=== PATIENT | female | born 1995 | race African-American/Black ===

== ENCOUNTER → 2022-10-19 10:46 | Outpatient (CLI) | payer OTHER, SELFPAY ==
--- NOTE | ~2022-10-19 | XR_ITS ---
EXAMINATION: XR hand LT min 3V INDICATION: Left hand pain TECHNIQUE: Three views of the left hand are obtained. COMPARISON: None available FINDINGS: No fracture, dislocation, or subluxation. The bones, soft tissues, and joint spaces are nor mal. IMPRESSION: 1. No acute osseous abnormality. Reviewed, dictated and finalized at location A.
== END ==
PROVIDERS: PCP Emergency Medicine; Visit Provider Emergency Medicine
DX: M79.645 Pain in left finger(s) (principal)
CPT/HCPCS: 73130

== ENCOUNTER → 2022-12-07 11:09 | Outpatient (CLI) | payer OTHER, SELFPAY ==
--- NOTE | ~2022-12-07 | XR_ITS ---
Clinical Indication: Asthma PA and lateral views of the chest: Comparison: None Findings: The lungs are clear, without evidence of focal consolidation or pleural effusion. Cardiome diastinal silhouette is within normal limits. Bones and soft tissues are unremarkable. Impression: Normal chest. Reviewed, dictated and finalized at location . Impression: Normal chest.
== END ==
PROVIDERS: PCP Emergency Medicine; Visit Provider Emergency Medicine
DX: J45.909 Unspecified asthma, uncomplicated (principal)
CPT/HCPCS: 71046

== ENCOUNTER 2023-01-03 13:42 | Outpatient (CLI) | payer OTHER, SELFPAY ==
--- NOTE | ~2023-01-03 | US_ITS ---
EXAMINATION: US renal BI DATE: 01/03/2023 14:43 INDICATION: HIGH CREATININE TECHNIQUE: Multiple grayscale and Doppler ultrasound images of the kidneys were obtained. COMPARISON: None. FINDINGS: The right kidney measures 10.0 x 4.3 x 5.1 cm. The left kidney measures 11.4 x 6.0 x 4.1 cm. The kidn eys demonstrate normal parenchymal echogenicity. There is no hydronephrosis. The bladder is normal. IMPRESSION: Unremarkable renal sonogram findings. Reviewed, dictated and finalized at location K.
== END 2023-01-03 13:43 | disposition home or self-care (01) ==
PROVIDERS: PCP Emergency Medicine; Visit Provider Emergency Medicine
DX: R79.89 Other specified abnormal findings of blood chemistry (principal)
CPT/HCPCS: 76775

== ENCOUNTER → 2023-10-10 11:54 | Outpatient (CLI) | payer OTHER, SELFPAY ==
--- NOTE | ~2023-10-10 | XR_ITS ---
Clinical Indication: Asthma PA and lateral views of the chest: Comparison: 12/07/2022 Findings: The lungs are clear, without evidence of focal consolidation or pleural effusion. Cardiome diastinal silhouette is within normal limits. Bones and soft tissues are unremarkable. Impression: Normal chest. Reviewed, dictated and finalized at location . Impression: Normal chest.
--- NOTE | ~2023-10-10 | XR_ITS ---
Lumbosacral Spine: AP and lateral views Clinical History: Pain Findings: The normal lordotic curve is maintained. The vertebral bodies and posterior elements are i ntact. The intervertebral disc spaces are preserved. The sacroiliac joints are normally outlined. Impression: No significant abnormality. Reviewed, dictated and finalized at [facility]. Impression: No significant abnormality.
== END ==
PROVIDERS: PCP Emergency Medicine; Visit Provider Emergency Medicine
DX: R20.0 Anesthesia of skin (principal); J45.909 Unspecified asthma, uncomplicated
CPT/HCPCS: 71046; 72100

== ENCOUNTER 2024-11-20 09:05 | Outpatient (CLI) | payer OTHER, SELFPAY ==
--- NOTE | ~2024-11-20 | US_ITS ---
US soft tissue head and neck 11/20/2024 10:24 Indication: Anterior neck mass Procedure: Neck ultrasound Comparison: Palpable anterior neck mass. Findings: Located anteriorly paracentral to the left adjacent to the isthmus of the thyroid gland the re is a cyst measuring 1.5 x 1 x 0.5 cm without internal vascularity. This mass is well-circumscribed and anechoic with thin ellis and no internal septations. Impression: 1: Anechoic well-defined cystic mass. 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 Differential diagnosis includes epidermoid/dermoid cyst, foraminal lobe cyst. Consider follow-up ultrasound as clinically warranted. Clinical correlation is a dvised including assessment for mobility with tenting protrusion or swallowing. Reviewed, dictated and finalized at location A. Impression: 1: Anechoic well-defined cystic mass. Midline anterior neck adjacent to the ist hmus of the thyroid, most consistent with thyroglossal duct cyst. Differential diagnosis includes epidermoid/dermoid cyst, foraminal lobe cyst. Consider follo w-up ultrasound as clinically warranted. Clinical correlation is advised includ ing assessment for mobility with tenting protrusion or swallowing.
--- OUTSIDE RECORDS SUMMARY | 2024-11-20 09:09 | XMS_ITS | Data Portability ---
Author Organization [facility] [employer] , [facility] Address [address] [place] [address] Assessment Encounter Date Assessment Date Assessment LastModified by Organization Details LastModified Time 03/24/2024 03/24/2024 Estradiol breakthrough bleeding refused surswab Not available 03/24/2024 16:13:17 Plan of Treatment Reminders Order Date Submit Date Provider Last Modified By Organization Details Last Modified Time Details Appointments None recorded. Lab bacterial vaginosis + vaginitis panel, vaginal 2024 025 [facility], [address] [place], [address], 5 14:11:02 bacterial vaginosis + vaginitis panel, vaginal 2024 025 [facility], [address] [place], [address], 5 09:47:22 urinalysis, dipstick 2024 025 [email or web address] [facility], [address] [facility], [place], [address], 5 15:34:48 culture, urine 2024 025 [facility], [address] [facility], [place], [address], 5 16:55:24 bacterial vaginosis + vaginitis panel, vaginal 2024 025 [facility] Rusty, [address] [place], [address], 14:57:47 Referral None recorded. Procedures None recorded. Surgeries None recorded. Imaging None recorded. Medication Orders metronidazo le 500 mg tablet 2024 025 [facility] [id number] [employer], [address] [facility] [place], [address], 5 09:55:00 estradiol 1 mg tablet 2023 025 [facility] [id number] [employer], [address] [facility] [place], [address], 5 15:05:44 Patient TargetsNo targets recorded. Patient Instructions Encounter Date Encounter Id Patient Instructions Last Modified By Organization Details Last Modified Time 05/16/2024 [id number] vaginitis: care instructions [email or web address] Not available 05/16/2024 15:34:48 11/14/2024 [id number] vaginitis: care instructions Not available 11/14/2024 15:06:18 Reason for Referral None Reported. Results Created Date Observation Date Name Description Value Unit Range Abnormal Flag Note LastModifiedBy Organization Detail LastModifiedTime 05/16/1905/18/2024 CULTU RE, URINE , ROUTI NE culture, urine, routine SEE NOTE abnormal CULTU RE, URINE , ROUTI NE Micro Numbe r: [id number] Test Statu s: Final Speci men Sourc e: Urine Speci men Quali ty: Adequ ate Resul t: Great er than 100,0 00 CFU/m L of Klebs iella aerog elvia (Ente robac ter) Michael aerog elvia ----- ----- ----- - INT MARILOU AMOX/ CLAVU LANAT E R 16 CEFAZ KRISSY R <=4 1 CEFEP ANUJA S <=0.1 2 CEFTA ZIDIM E S <=1 CEFTR IAXON E S <=0.2 5 CIPRO FLOXA KVNG S <=0.0 6 GENTA MICIN S <=1 LEVOF LOXAC IN S <=0.1 2 MEROP ENEM S <=0.2 5 NITRO FURAN TOIN I 64 PIP/T AZOBA CTAM S <=4 TRIME THOPR IM/PEREZ LFA S <=20 S = Susce ptibl e I = Inter media te R = Resis tant NS = Not susce ptibl e SDD = Susce ptibl e Dose Depen dent * = Not Teste d NR = Not Repor nathalia NN = See Thera py Comme nts THERA PY COMME NTS Note 1: For uncom plica nathalia UTI cause d by E. coli, K. pneum oniae or P. mirab ilis: Cefaz krissy is susce ptibl e if MARILOU <3 2 mcg/m L and predi cts susce ptibl e to the oral agent s cefac christo, cefdi altagracia, cefpo doxim e, cefpr ozil, cefur oxime , cepha lexin and lorac arbef . Not Available [facility] [address] [place], [address], 05/18/2024 10:03:08 05/16/19 25 05/19/2024 VAGIN ITIS PLUS STD PANEL bacterial vaginosis BV neg negati ve normal Not Available [address], [address], 05/19/2024 14:57:47 05/16/19 25 05/19/2024 VAGIN ITIS PLUS STD PANEL andres species C. spp neg negati ve normal Not Available [address], [address], 05/19/2024 14:57:47 05/16/19 25 05/19/2024 VAGIN ITIS PLUS STD PANEL andres glabrata C. gla neg negati ve normal Not Available [address], [address], 05/19/2024 14:57:47 05/16/19 25 05/19/2024 VAGIN ITIS PLUS STD PANEL trichomonas vaginalis CV/TV TRICH neg negati ve normal Not Available [facility] [address] [place], [address], 05/19/2024 14:57:47 05/16/19 25 05/19/2024 VAGIN ITIS PLUS STD PANEL chlamydia trachomatis CT neg negati ve normal This repor t is inten ded for us in clini felice monit oring and manag ement of [facility] nts. It is not inten ded for use in medic al-le gal appli catio n. Not Available [facility] [address] [place], [address], 05/19/2024 14:57:47 05/16/19 25 05/19/2024 VAGIN ITIS PLUS STD PANEL neisseria gonorrhoeae GC neg negati ve normal This repor t is inten ded for us in clini felice monit oring and manag ement of patie nts. It is not inten ded for use in medic al- gal appli catio n. Not Available [facility] [address] [place] [address], [address], 05/19/2024 14:57:47 05/16/19 25 05/16/2024 urina lysis , dipst ick Leukocytes Trace Not Available [address], [address], 05/16/2024 15:11:30 05/16/19 25 05/16/2024 urina lysis , dipst ick Nitrite negati ve Not Available [address], [address], 05/16/2024 15:11:30 05/16/19 25 05/16/2024 urina lysis , dipst ick Urobilinogen .2 Not Available [address], [address], 05/16/2024 15:11:30 05/16/19 25 05/16/2024 urina lysis , dipst ick Protein Trace Not Available [facility] [address], [place], [address], 05/16/2024 15:11:30 05/16/19 25 05/16/2024 urina lysis , dipst ick pH 5.0 Not Available [facility] [address], [place], [address], 05/16/2024 15:11:30 05/16/19 25 05/16/2024 urina lysis , dipst ick Blood Non-He molyze d: Trace Not Available [facility] [address], [place], [address], 05/16/2024 15:11:30 05/16/19 25 05/16/2024 urina lysis , dipst ick Specific [place] 1.030 Not Available [facility] [address], [place], [address], 05/16/2024 15:11:30 05/16/19 25 05/16/2024 urina lysis , dipst ick Ketone Trace Not Available [facility] [address], [place], [address], 05/16/2024 15:11:30 05/16/19 25 05/16/2024 urina lysis , dipst ick Bilirubin Small Not Available [facility] [address], [place], [address], 05/16/2024 15:11:30 05/16/19 25 05/16/2024 urina lysis , dipst ick Glucose Negati ve Not Available [facility] [address], [place], [address], 05/16/2024 15:11:30 05/16/19 25 05/16/2024 urina lysis , dipst ick Appearance Slight ly Cloudy Not Available [facility] [address] [place] [address], [address], 05/16/2024 15:11:30 05/16/19 25 05/16/2024 urina lysis , dipst ick Color Yellow Not Available [facility] [address] [place] [address], [address], 05/16/2024 15:11:30 08/16/19 25 08/19/2024 VAGIN ITIS PLUS STD PANEL bacterial vaginosis BV neg negati ve normal Not Available [address], [address], 08/20/2024 09:47:22 08/16/19 25 08/19/2024 VAGIN ITIS PLUS STD PANEL andres species C. spp POS negati ve abnormal Not Available [address], [address], 08/20/2024 09:47:22 08/16/19 25 08/19/2024 VAGIN ITIS PLUS STD PANEL andres glabrata C. gla neg negati ve normal Not Available [address], [address], 08/20/2024 09:47:22 08/16/19 25 08/19/2024 VAGIN ITIS PLUS STD PANEL trichomonas vaginalis CV/TV TRICH neg negati ve normal Not Available [address], [address], 08/20/2024 09:47:22 08/16/19 25 08/19/2024 VAGIN ITIS PLUS STD PANEL chlamydia trachomatis CT neg negati ve normal This repor t is inten ded for us in clini felice monit oring and manag ement of [facility] nts. It is not inten ded for use in medic al-le gal appli catio n. Not Available [address] [place], [address], 08/20/2024 09:47:22 08/16/19 25 08/19/2024 VAGIN ITIS PLUS STD PANEL neisseria gonorrhoeae GC neg negati ve normal This repor t is inten ded for us in clini felice monit oring and manag ement of [facility]. It is not inten ded for use in medic al-le gal appli catio n. Not Available [address], [address], 08/20/2024 09:47:22 11/15/19 25 11/17/2024 VAGIN ITIS PLUS STD PANEL bacterial vaginosis BV neg negati ve normal Not Available [address], [address], 11/17/2024 14:11:02 11/15/19 25 11/17/2024 VAGIN ITIS PLUS STD PANEL andres species C. spp neg negati ve normal Not Available [address], [address], 11/17/2024 14:11:02 11/15/19 25 11/17/2024 VAGIN ITIS PLUS STD PANEL andres glabrata C. gla neg negati ve normal Not Available [address], [address], 11/17/2024 14:11:02 11/15/19 25 11/17/2024 VAGIN ITIS PLUS STD PANEL trichomonas vaginalis CV/TV TRICH neg negati ve normal Not Available [address], [address], 11/17/2024 14:11:02 11/15/19 25 11/17/2024 VAGIN ITIS PLUS STD PANEL chlamydia trachomatis CT neg negati ve normal This repor t is inten ded for us in clini felice monit oring and manag ement of [facility]. It is not inten ded for use in medic al-le gal appli catio n. Not Available [facility] [address] [place], [address], 11/17/2024 14:11:02 11/15/1911/17/2024 VAGIN ITIS PLUS STD PANEL neisseria gonorrhoeae GC neg negati ve normal This repor t is inten ded for us in clini felice monit oring and manag ement of patie nts. It is not inten ded for use in medic al-le gal appli catio n. Not Available [facility] [address] [facility], [place], [address], 11/17/2024 14:11:02 Result Notes None recorded. Problems Name Problem SNOMED Code Status Onset Date Resolution Date Notes Provider Name and Address Organization Details Recorded Time Pregnanc y, childbir th and puerperi um finding Completed 201802/04/2019 Encounte r for supervis ion of normal first pregnanc y, first trimeste r; Progress : Stable Added By: Sophia Rothman Add to Current Problems : NO ProblemS tatus: Resolve Not Available [facility] 2 20:09:00 Gestatio n period, 12 weeks [id number] Completed 201802/04/2019 12 weeks gestatio n of pregnanc y; Progress : Stable Added By: Sophia Rothman Add to Current Problems : NO ProblemS tatus: Resolve Not Available [facility] 2 20:09:04 Screenin g for malignan t neoplasm of cervix Completed 201802/04/2019 Encounte r for screenin g for malignan t neoplasm of cervix; Progress : Stable Added By: Sophia Rothman Add to Current Problems : NO ProblemS tatus: Resolve Not Available [facility] 2 20:09:04 Pregnanc y, childbir th and puerperi um finding Completed 201809/23/2020 Encounte r for supervis ion of normal first pregnanc y, second trimeste r; Progress : Stable Added By: Shanon Castañeda Add to Current Problems : NO ProblemS tatus: Resolve Not Available [facility] 2 20:09:01 Gestatio n period, 15 weeks [id number] Completed 201802/04/2019 15 weeks gestatio n of pregnanc y; Progress : Stable Added By: Twyla Rothman Add to Current Problems : NO ProblemS tatus: Resolve Not Available [facility] 2 22:10:43 Gestatio n period, 23 weeks [id number] Completed 201802/04/2019 23 weeks gestatio n of pregnanc y; Progress : Stable Added By: Twyla Rothman Add to Current Problems : NO ProblemS tatus: Resolve Not Available [facility] 2 20:09:[address] Concept Completed 201802/04/2019 Supervis ion of high risk pregnanc y, unspecif ied, second trimeste r; Progress : Stable Added By: Susy Mcgarry Add to Current Problems : NO ProblemS tatus: Resolve Not Available [facility] 2 20:09:01 Antenata l screenin g for growth retardat ion Completed 201809/23/2020 Encounte r for antenata l screenin g for growth retardat ion; Progress : Stable Added By: Susy Mcgarry Add to Current Problems : NO ProblemS tatus: Resolve Not Available [facility] 2 20:09:02 Antenata l screenin g for malforma tion Completed 201802/04/2019 Encounte r for antenata l screenin g for malforma tions; Progress : Stable Added By: Twyla Rothman Add to Current Problems : NO ProblemS tatus: Resolve Not Available [facility] 2 20:09:06 Gestatio n period, 27 weeks [id number] Completed 201809/23/2020 27 weeks gestatio n of pregnanc y; Progress : Stable Added By: Shanon Castañeda Add to Current Problems : NO ProblemS tatus: Resolve Not Available [facility] 2 22:10:42 Pregnanc y, childbir th and puerperi um finding Completed 201809/23/2020 Encounte r for supervis ion of normal first pregnanc y, third trimeste r; Progress : Stable Added By: [place] Dial Add to Current Problems : NO ProblemS tatus: Resolve Not Available [facility] 2 20:08:59 Gestatio n period, 29 weeks [id number] Completed 201809/23/2020 29 weeks gestatio n of pregnanc y; Progress : Stable Added By: Dolly Taylor Add to Current Problems : NO ProblemS tatus: Resolve Not Available [facility] 2 20:09:05 Gestatio n period, 30 weeks [id number] Completed 201809/23/2020 30 weeks gestatio n of pregnanc y; Progress : Stable Added By: Eyad Baxter Add to Current Problems : NO ProblemS tatus: Resolve Not Available [facility] 2 20:09:00 Gestatio n period, 32 weeks [id number] Completed 201809/23/2020 32 weeks gestatio n of pregnanc y; Progress : Stable Added By: Zenaida Mckeon Add to Current Problems : NO ProblemS tatus: Resolve Not Available [facility] 2 20:09:03 Uterine size for dates discrepa ncy Completed 201809/23/2020 Uterine size-kassie e discrepa ncy, third trimeste r; Progress : Stable Added By: Zenaida Mckeon Add to Current Problems : NO ProblemS tatus: Resolve Not Available [facility] 2 20:09:03 Gestatio n period, 34 weeks [id number] Completed 201809/23/2020 34 weeks gestatio n of pregnanc y; Progress : Stable Added By: Sophia Rothman Add to Current Problems : NO ProblemS tatus: Resolve Not Available [facility] 2 20:09:03 Normal pregnanc y in multigra sanjana [id number] Completed 201809/23/2020 Encounte r for supervis ion of other normal pregnanc y, third trimeste r; Progress : Stable Added By: Sophia Rothman Add to Current Problems : NO ProblemS tatus: Resolve Not Available [facility] 2 20:09:02 Gestatio n period, 36 weeks [id number] Completed 201809/23/2020 36 weeks gestatio n of pregnanc y; Progress : Stable Added By: Martha Burnette Add to Current Problems : NO ProblemS tatus: Resolve Not Available [facility] 2 22:10:42 Antenata l screenin g Completed 201809/23/2020 Encounte r for antenata l screenin g for Streptoc occus B; Progress : Stable Added By: Martha Burnette Add to Current Problems : NO ProblemS tatus: Resolve Encounte r for other specifie d antenata l screenin g; Progress : Stable Added By: [place] Dial Add to Current Problems : NO ProblemS tatus: Resolve; Start Date : 10/18/19 19 Not Available [facility] 2 20:09:00 Gestatio n period, 37 weeks [id number] Completed 201809/23/2020 37 weeks gestatio n of pregnanc y; Progress : Stable Added By: [place] Dial Add to Current Problems : NO ProblemS tatus: Resolve Not Available [facility] 2 20:09:06 Procedur e on genitour inary system Completed 201909/23/2020 Encounte r for surgical aftercar e followin g surgery on the genitour inary system; Progress : Stable Added By: Danae Rose Add to Current Problems : NO ProblemS tatus: Resolve Not Available [facility] 2 20:09:01 Postoper ative care Completed 201909/23/2020 Encounte r for surgical aftercar e followin g surgery on the genitour inary system; Progress : Stable Added By: Danae Rose Add to Current Problems : NO ProblemS tatus: Resolve Not Available [facility] 2 20:09:02 Clinical finding Completed 201909/23/2020 Encounte r for initial prescrip tion of injectab le contrace ptive; Progress : Stable Added By: Debi Chamberlain Add to Current Problems : NO ProblemS tatus: Resolve Not Available [facility] 2 20:09:05 Depressi on screenin g Completed 201909/23/2020 Encounte r for screenin g for maternal depressi on; Progress : Stable Added By: Danae Rose Add to Current Problems : NO ProblemS tatus: Resolve Not Available [facility] 2 20:09:05 Lochia finding Completed 201909/23/2020 Encounte r for routine postpart um follow-u p; Progress : Stable Added By: Twyla Rothman Add to Current Problems : NO ProblemS tatus: Resolve Not Available [facility] 2 20:09:04 Sampling of vagina for Papanico laou smear Completed 201909/23/2020 Encounte r for gynecolo gical examinat ion (general ) (routine ) without abnormal findings ; Progress : Stable Added By: yEad Baxter Add to Current Problems : NO ProblemS tatus: Resolve Not Available [facility] 2 20:09:00 Generali jai hypertejinder jose [id number] Completed 202009/23/2020 Generali jai jose; Progress : Stable Added By: Debi Chamberlain Add to Current Problems : NO ProblemS tatus: Resolve Not Available [facility] 2 20:09:03 Problem Notes None recorded. Procedures Surgical History Date Name Laterality Status Provider Name and Address Organization Details Recorded Time 4 Depo Provera Injection completed Jeanna Martins [facility] 01/01/2024 16:12:37 4 Depo Provera Injection completed Jeanna Martins [facility] 10/02/2023 16:45:45 4 Depo Provera Injection completed Jeanna Martins [facility] 07/17/2023 17:34:29 3 Depo Provera Injection completed Jeanna Martins [facility] [place] [facility] 04/16/2023 17:28:32 3 Depo Provera Injection completed Jeanna Martins [facility] 01/29/2023 15:57:11 3 Depo Provera Injection completed Jeanna Martins [facility] 11/10/2022 17:22:53 3 Depo Provera Injection completed Jeanna Martins [facility] IV 08/25/2022 17:37:35 3 Depo Provera Injection completed Jeanna Martins [facility] IV 05/25/2022 15:55:33 2 Date of Last Pap Smear completed Cristina Griffiths [facility] 03/22/2022 14:37:48 2 Depo Provera Injection completed Eugenia Whitt [facility] IV 07/08/2021 15:44:53 1 Depo Provera Injection completed Jeanna Lopez [facility] IV 04/07/2021 17:39:08 section completed Sarahjose armando Armendariz [facility] 07/08/2021 10:11:36 Imaging Results None recorded. Procedure Notes None recorded. Medical Equipment None Reported. Allergies Allergen ID Allergen Name Allergen Category Reaction Reaction Severity Criticality Documentation Date Start Date Code Code System Note Provider Name and Address Organization Details Recorded Time 923408 No known allergy (situatio n) Not available Not available Not available Not available 09/19/2023 51041 6003 SNOMED Cassie Quintana nas, [facility] IV 4 14:25:02 No known drug allergies Medications Name Sig Start Date Stop Date Status Note LastModified by Organization Details LastModified Time terconazo le 0.4 % vaginal cream Insert 1 applicat orful every day by vaginal route for 7 days. 09/18 completed Not Available Not Available Not Available azithromy kvng 250 mg tablet TAKE 2 TABLETS BY MOUTH ONE TIME TODAY THEN 1 TABLET (250 MG) ORALLY DAILY FOR 4 DAYS 09/18 completed Not Available Not Available Not Available ibuprofen 800 mg tablet TAKE 1 TABLET 3 TIMES A DAY BY ORAL ROUTE NEEDED. 11/21 completed Not Available Not Available Not Available fluconazo le 150 mg tablet 1 TABLET BY MOUTH ON LAST DAY OF ANTIBIOT ICS, THEN REPEAT DOSE IN 3 DAYS 11/14 completed Not Available Not Available Not Available metronida zole 500 mg tablet TAKE 1 TABLET BY MOUTH EVERY 12 HOURS FOR 7 DAYS 07/03 completed Not Available Not Available Not Available lidocaine HCl 2 % mucosal jelly APPLY PEA SIZED AMOUNT TO AFFECTED AREA NEEDED FOR PAIN 10/19 completed LIDOCAIN E HCL 2% JELLY Refill Denied: No Edited by: Mariajose Toledo) on 10/15/19 21 Stopped by: Mariajose Toledo) on Not Available Not Available Not Available sulfameth oxazole 800 mg-trimet hoprim 160 mg tablet TAKE 1 TABLET BY MOUTH EVERY 12 HOURS FOR 5 DAYS 07/03 completed Not Available Not Available Not Available amoxicill in 500 mg tablet TAKE 1 TABLET BY MOUTH EVERY 8 HOURS FOR 7 DAYS 07/06 completed Not Available Not Available Not Available ketorolac 0.5 % eye drops 10/19 completed Not Available Not Available Not Available Vitamin tablet Take 1 tablet(s ) by mouth daily 10/21 completed Multivit leslie Tablet Allow Substitu tion: True Refill Denied: No Not Available Not Available Not Available nystatin- triamcino lone 100,000 unit/gram -0.1 % topical ointment APPLY TO AFFECTED AREA TWICE A DAY 10/19 completed NYSTATIN -TRIAMCI NOLONE OINTM Refill Denied: No Edited by: Mariajose Toledo) on 10/15/19 21 Stopped by: Mariajose Toledo) on Not Available Not Available Not Available estradiol 1 mg tablet Take 1 tablet twice a day by oral route for 5 days. 05/16 completed Not Available Not Available Not Available Depo-Prov era 150 mg/mL intramusc ular suspensio n Inject 1 mL every 3 months by intramus cular route. 05/16 completed Not Available Not Available Not Available cephalexi n 500 mg capsule Take 1 capsule every 12 hours by oral route for 5 days. 07/06 completed Not Available Not Available Not Available promethaz ine 25 mg tablet TAKE 1/2 TABLET BY MOUTH EVERY 6 HOURS NEEDED FOR NAUSEA 09/18 completed Not Available Not Available Not Available polyethyl aimee glycol 3350 17 gram/dose oral powder TAKE DIRECTED BY THE OFFICE 09/18 completed Not Available Not Available Not Available albuterol sulfate HFA 90 mcg/actua tion aerosol inhaler 10/19 completed Not Available Not Available Not Available doxycycli ne hyclate 100 mg tablet Take 1 tablet twice a day by oral route for 7 days. 07/06 completed Not Available Not Available Not Available medroxypr ogesteron e 150 mg/mL intramusc ular syringe INJECT 1 ML INTRAMUS CULARLY EVERY 3 MONTHS DIRECTED active Not Available Not Available No t Available nitrofura ntoin monohydra te/macroc rystals 100 mg capsule TAKE 1 CAPSULE BY MOUTH TWICE A DAY FOR 5 DAYS 11/14 completed Not Available Not Available Not Available Vitals Date Recorded Body height Body mass index (BMI) Body weight Body temperature Systolic And Diastolic Provider Name and Address Organization Details Last Updated DateTime 05/16/2024 167.64 cm 26.7 kg/m2 42190.1 8 g 98.5 [degF] 108/64 mm[Hg] Masha Posey [facility] [employer] [facility] IV 15:08:01 Date Recorded Body height Body mass index (BMI) Body weight Systolic And Diastolic Provider Name and Address Organization Details Last Updated DateTime 07/03/2024 167.64 cm 26.1 kg/m2 08769.96 g 108/74 mm[Hg] Sneha Castro [facility] 07/03/2024 14:38:44 Date Recorded Body height Body mass index (BMI) Body weight Systolic And Diastolic Provider Name and Address Organization Details Last Updated DateTime 08/15/2024 170.18 cm 26.4 kg/m2 94897.39 g 108/72 mm[Hg] Marco Cantrell [facility] [place] [facility] IV 08/15/2024 15:45:08 Date Recorded Body height Body mass index (BMI) Body weight Systolic And Diastolic Provider Name and Address Organization Details Last Updated DateTime 11/14/2024 170.18 cm 24.7 kg/m2 29454.88 g 110/72 mm[Hg] Cristina Griffiths [facility] [place] [facility] IV 11/14/2024 14:53:30 Date Recorded Body height Body mass index (BMI) Body weight Systolic And Diastolic Provider Name and Address Organization Details Last Updated DateTime 03/24/2024 167.64 cm 27.1 kg/m2 37773.52 g 100/60 mm[Hg] Ami Ray [facility] [place] [facility] [facility] 03/24/2024 15:40:10 Social History Question Answer Notes LastModified by Organizat ion Details LastModified Time Tobacco Smoking Status Never Smoker Ami Marxmark null, [facility] 11/21/2022 17:01:39 If You Are , What Was Your Level Of Alcohol Consumption Prior To ? None [email or web address] Information not available 09/19/2023 Are You Blind Or Do You Have Difficulty Seeing? No Information not available 11/21/2022 Are You Deaf Or Do You Have Serious Difficulty Hearing? No Information not available 11/21/2022 What Type Of Diet Are You Following? REGULAR Information not available 11/21/2022 How Many Children Do You Have? 1 Information not available 11/21/2022 What Is Your Relationship Status? Single Information not available 07/08/2021 Are You Sexually Active? Yes Information not available 07/08/2021 What Types Of Sporting Activities Do You Participate In? Walking Information not available 07/08/2021 Sex: Female Functional Status Question Answer Note LastModified by Organizat ion Details LastModified Time Do you use any illicit or recreational drugs? No Information not available 11/21/2022 Do you or have you ever used any other forms of tobacco or nicotine? No [email or web address] Information not available 09/19/2023 What is your level of alcohol consumption? None Information not available 11/21/2022 Are you currently employed? No [email or web address] Information not available 10/08/2023 What is your exercise level? Occasional Information not available 11/21/2022 Mental Status None recorded. Family History Relationship Description Onset Age of this Age Resolved Age Notes LastModified by Organization Details LastModified Time Father No current problems or disability [email or web address] Not available 08/2021 10:11:19 Mother No current problems or disability [email or web address] Not available 08/2021 10:11:19 Medical History Condition Response High Blood Pressure N Cytomegalovirus N Hyperthyroidism N MRSA N Blood Transfusion N Depression N Incontinence N Anxiety Disorder N Autoimmune disease N Arthritis N Infertility N Polycystic Ovarian Syndrome N Hematuria N Stroke N Varicosities N Seasonal allergies N Crohn's Disease N Alzheimer's/Dementia N COPD/Emphysema N History of Abnormal Pap N Fibromyalgia N Kidney Infection N Kidney Disease N Gallbladder disease N Von Willebrand disease N Eating Disorder N Diabetes Mellitus (non-insulin dependent ) N Ovarian Problems N Frequent Urinary Tract infections N Osteopenia N GERD (reflux) N Diabetes (insulin dependent) N Asthma N Heart Attack N Endometrial Cancer N Hepatitis N Pulmonary Embolism N RPR N Chicken Pox N Other Cancer N Colon Cancer N Herpes (HSV) N Breast Cancer N Lung Cancer N Hypothyroidism N Panic Attacks N Neurological Disorder N Deep Vein Thrombosis N Shingles N Tuberculosis/Positive PPD N Cervical Cancer N Chlamydia N Endometriosis N HPV/Genital Warts N IBS (Irritable Bowel Syndrome) N High Cholesterol N Liver Disease N Ulcer N HIV N Sickle Cell Disease/Trait N ADD/ADHD N Anemia N Multiple Sclerosis N Gonorrhea N Headaches/migraines N Ovarian Cancer N Seizures/Epilepsy N Breast Problems N Fibroids N Lupus N Rubella N Blood Clotting Disorder N Bipolar Disorder N Diabetes Mellitus (during ) N Ulcerative Colitis N Heart Disease N Osteoporosis N Gynecological History Statement/Question Response Date of Last Colonoscopy Flow Moderate Date of last HPV 10/19/2021 Date of LMP 11/03/2024 Most Recent Bone Density Date of Last Pap Smear 10/19/2021 Most Recent Mammogram Current Control Method None Age at Menarche 11 Obstetrics History GPAL:G 1 P 1 0 0 1 Type Value Full Term 1 Living 1 Total 1 Immunizations Vaccine Type Date Status Note Provider Lukasz e and Address Organization Details Recorded Time COVID-19, mRNA, LNP-S, PF, luda-sucrose, 30 mcg/0.3 mL 04/10/2023 completed Anitha lovell, [facility] M[employer]D ANTIQUES & CONSIGNMENT IV 05/18/2023 09:26:02 Tdap 05/06/2019 completed Cassie lovell, [facility] [place] [facility] IV 09/19/2023 14:25:02 Past Encounters Encounter ID Performer Location Encounter Start Date Encounter Closed Date Diagnosis/Indication Diagnosis SNOMED-CT Code Diagnosis ICD10 Code Diagnosis Note [id number] Roxanne Smith CNM [facility] h [address] [place] [address] 04/07/2021 17:37:10 04/21/2021 13:15:38 [id number] JIMY Price [facility] [address] [place] [address] 07/08/2021 15:40:03 07/11/2021 09:59:52 Surveillance of depot contraception done 8175515289 9104 Z30.42 [id number] ELISEO COLBY MD [facility] [address] [place] [address] 10/19/2021 14:46:08 10/19/2021 16:59:57 Gynecologic examination 63920560 Z01.419 Screening for malignant neoplasm of cervix 775869448 Z12.4 Surveillan ce of contraception 389099732 Z30.40 Desires Depo, may restart depo with next period. Venereal d isease screening 971980396 Z11.3 [id number] Debi Chamberlain, [facility] [address] [place] [address] 03/24/2022 13:58:46 03/24/2022 15:58:23 Vaginal discharge 403480187 N89.8 N76.0 Dysuria 58583431 R30.0 Oligomenorrhea 75423862 N91.5 2/ Depo-prove ra.Discuss ed amenorrhea due to depo-prove ra can be for up to 12-18 months [id number] [facility] [address] [place] [address] 05/25/2022 14:39:53 05/25/2022 17:48:32 Contraception care 858656215 Z30.09 [id number] [facility] [address] [place] [address] 07/06/2022 15:45:28 07/06/2022 16:33:27 Screening for disorder 227991387 Z11.3 N89.9 Pain in pelvis 32282753 R10.2 [id number] [facility] [address] [place] [address] 08/25/2022 17:34:29 08/28/2022 13:57:58 Surveillance of depot contraception done [id number] [facility] Z30.42 [id number] THEO SEBASTIAN [facility] [address] [place] [address] 11/10/2022 16:59:44 11/17/2022 04:26:00 Surveillance of depot contraception done [id number] [facility] Z30.42 [id number] KHLOE SHAHID, [facility] [address] [place] [address] 11/21/2022 16:23:49 11/22/2022 09:23:35 Vaginal discharge 160519194 N89.8 N76.0 Pt educated on exam findings, and discussed POC. Vaginal cx collected and sent. Pt advised to avoid fragrant soaps/laun dry detergents , use of baking soda soaks, having partner change soaps, etc. Further POC pending lab result review. [id number] Roxanne Smith, [address] [address] 01/17/2023 13:43:32 01/17/2023 15:29:22 Urinary tract infectious disease 54164020 N39.0 Vaginal irritation 39611 6004 N89.8 [id number] THEO WALKERMARIBEL [facility] [address] [facility] [place] [address] 01/29/2023 15:23:54 01/31/2023 23:36:16 Surveillance of depot contraception done [id number] [facility] Z30.42 [id number] THEO JAZ [facility] [address] [facility] [place] [address] 04/16/2023 16:58:22 04/18/2023 10:30:56 Surveillance of depot contraception done [id number] [facility] Z30.42 [id number] TATO GOMEZ, [facility] [address] [facility] [address] 05/18/2023 08:34:26 05/18/2023 15:09:55 Dysuria 61268577 R30.0 Vaginal irritation 56718 6004 N89.8 [id number] THEO JAZ [facility] [address] [place] [address] 06/19/2023 14:39:31 06/19/2023 17:57:24 Vaginal discharge 017283775 N89.8 N76.0 Yeast not Andres albicans detected 317593564 R89.5 Previous swab- not getting better. If still Glabrata positive: She will take Diflucan every 3 days for 3 doses; then weekly x 1 month. [id number] [facility] [address] [place] [address] 07/17/2023 15:51:31 07/17/2023 17:08:47 Surveillance of depot contraception done 5899940737 9104 Z30.42 [id number] THEO JAZ [facility] [address] [place] [address] 09/19/2023 14:21:45 09/19/2023 14:46:03 Dysuria 48023414 R30.0 Pt reports s/s of dysuria. Acute vaginitis 92918528 N76.0 Pt comes in today for Infection/ STI testing. Discussed the various types of Infections and STIs, related symptoms and the potential consequenc es (including effects on fertility) of STI. Reviewed ways to limit exposure and prevention techniques . Vulvar care guidelines and safe sex practices reviewed. TX pending results. Declines STI blood work Patient electing to self collect. Given instructio ns by [facility] to insert past residential erick and rotate for 30s. Patient denies questions and verbalizes understand ing. Wishes to proceed with self collection .Vulvar care guidelines and safe sex practices reviewed. TX pending results. Gaetano martinez thirty minutes spent with patient in consultati on (>50% face-to-fa ce). Patient labs and notes were reviewed. Patient questions were answered. Additional patient care was kathy ramirez [id number] GOMEZ GUSTAFSON [facility] [address] [place] [address] 10/02/2023 16:43:14 10/03/2023 14:23:17 Patient encounter status 635929425 Z30.42 Additional diagnosis detail: Surveillan ce for Depo-Prove ra contracept ion [id number] JIMY GARCIA-[address] [address] 10/08/2023 15:50:58 10/08/2023 16:45:09 Acute vaginitis 01112742 N76.0 Pt comes in today for Infection/ STI testing. Discussed the various types of Infections and STIs, related symptoms and the potential consequenc es (including effects on fertility) of STI. Reviewed ways to limit exposure and prevention techniques . Vulvar care guidelines and safe sex practices reviewed. TX pending results. Declines STI blood work Patient electing to self collect. Given instructio ns by JIMY to insert past residential erick and rotate for 30s. Patient denies questions and verbalizes understand ing. Wishes to proceed with self collection .Vulvar care guidelines and safe sex practices reviewed. TX pending results. [id number] Pauline Beard MD [address] [address] 12/07/2023 11:30:24 12/07/2023 12:42:42 Burning sensation of vagina 160680422 N94.89 Additional diagnosis detail: Vaginal burning Venereal d isease screening 885426794 Z11.3 Vaginal discharge 187643 006 N89.8 Candidiasis of vagina 72 762175 B37.31 [id number] GOMEZ GUSTAFSON [address] [address] 01/01/2024 15:47:25 01/02/2024 19:52:49 Surveillance of depot contraception 510603964 Z30.42 [id number] NORA WEAVER NP [address] [address] 02/15/2024 14:59:41 02/18/2024 17:46:00 Vaginal odor 014013937 N89.8 Vaginal odor- Nuswab sent, possibly BV, will confirm prior to tx- Reviewed vulvar hygiene, avoid douching and wipes-israel ent denies new partners or new hygeine products. [id number] KHLOE SHAHID, GOMEZ [facility] [address] [place] [address] 03/24/2024 14:45:05 03/25/2024 15:21:15 Break-through bleeding 46722056 N92.1 Pt comes in for AUB with Depo -- Last Depo shot:12-31--Has been on depo for: 4 years-- Reassured about common nature of AUB with Depo no nursing home effects. Discussed MOA to help prevent . -- Discussed options: Estradiol x5 days, NuvaRing, STACY Taper, or discontinu e depo shot and alternativ e method ofcontrace ption.--Es tradiol 1mg BID x 5days, NuvaRing and STACY taper (3, 3, 2, 2, 1, 1; 3 pills 1st day, 3 pills 2nd day, 2 pills 3rd day, 2 pills 4th day;at least 20 mcg Estrogen) followed by a withdrawal bleed to potentiall y stabilize endometriu m. May repeat 2 times.-- No evidence of anemia, bleeding light-- Pt interested in trying: Estradiol sent in-- Pt is planning on giving her body a break from depo. Is wanting a break from all control. Discussed importance of using barrier method to help prevent unplanned . --Discusse d r/o infection as source of bleeding and patient declined at this visit. [id number] JIMY AYALA [facility] [address] [place] [address] 05/16/2024 15:00:51 05/19/2024 15:59:37 Urinary symptoms 309105178 R39.9 Endorses burning while urinating, urine dip inconclusi ve for UTI, urine culture sent. Will treat based upon culture results. Acute vaginitis 43599914 N76.0 Vaginal odor and irritation - vaginitis/ STI swab sent, rx for Metronidaz ole pending culture results- Reviewed vulvar hygiene: avoid tight or moist clothing, soaps, Vagisil and other wipes, cotton underwear only, and sleep without. Encouraged use of unscented body wash and laundry detergent. - Followup to be scheduled after results for further management . [id number] NORA WEAVER NP [facility] [address] [place] [address] 07/03/2024 14:33:44 07/03/2024 15:36:07 Reproductive care management 023675674 Z31.81 Patient here with a request for referral for a fertility specialist . Patient was previously on Depoprover a and last injection was in Mar 2024. patient educated that it may take several months for menses to return and fertility to resume. Patient stood and left. [id number] [facility] [address] [place] [address] 08/15/2024 15:04:55 08/15/2024 16:33:22 Vaginal irritation 741834384 N89.8 Pt educated on exam findings, and discussed POC. Vaginal cx collected and sent. Pt advised to avoid fragrant soaps/laun dry detergents , use of baking soda soaks, having partner change soaps, etc. Further POC pending lab result review. [id number] GOMEZ GUSTAFSON [facility] [address] [place] [address] 11/14/2024 14:44:06 11/14/2024 15:10:29 Vaginal discharge 296820715 N89.8 N76.0 Pt educated on exam findings, and discussed POC. Vaginal cx collected and sent. Pt advised to avoid fragrant soaps/laun dry detergents , use of baking soda soaks, having partner change soaps, etc. Further POC pending lab result review. Health Concerns Section Related Observation LastModified by Organization Detai ls LastModified Time None Recorded Concern Status LastModified by Organization Details LastModified Time None Recorded Advance Directives Directive None Recorded Payers Insurance Date Sequence Insurance Name Policy Number Policy Hall Covered Member ID Hall Member ID Guarantor Name 11/12/2024 1 [facility] - DOS ON OR AFTER 20 (MEDICAID REPLACEMENT - HMO) Sarah Olson [id number] Sarah Olson Notes Date Note Type Note Provider Name and Address Organization Details Recorded Time 03/24/2024 text/html Patient started bleeding 03/13/24 and has not stopped. She is on the Depo shot and is not due for another one until the end of this month. Patient stating she wants to come off of it due to the bleeding. Patient states that she has been on it for over 4 years. KHLOE SHAHID, GOMEZ [address] [place], [address], [facility] IV 03/24/2024 19:57:34 05/16/2024 text/html Sarah is here to day due to vaginal odor and irritation. Has previously had bacterial vaginosis and these symptoms are similar to what she has experienced in the past. Would like treatment started today. Symptoms have been present for the past week. Also endorses burning with urination. JIMY AYALA [address] [facility], [place], [address], [facility] IV 05/18/2024 20:49:01 07/03/2024 text/html Sarah is a 29yo pt. Pt. is here for a fertility check. Pt. states that she have been on Depo a little over 4 yrs. Pt. just wants to make sure that she is still fertile. Pt. has no other concerns. NORA WEAVER NP [address] [facility], [place], [address], [facility] [employer] IV 07/03/2024 14:52:33 08/15/2024 text/html Sarah is a 29 yr old female. Pt c/o pain and irritation. Pt LMP 07-14-24. Pt last pap was 10-19-21. Pt wants STD testing today. No other concerns. KHLOE SHAHID, GOMEZ [address] [place], [address], [facility] IV 08/15/2024 16:02:25 11/14/2024 text/html Vaginal/Vulvar ProblemReported bypatient.Location:vu lva; vagina Duration:present for 1-7 days Quality:itching; irritation Severity:moderate Context:sexually active Diara 29 y/o here for c/o vaginal irritation and fishy odor,x 5 days LMP 11/03/2024, no control, she is sexually active. Last pap 2021, KHLOE SHAHID, LABOR[facility] [address] [facility], [place], [address], [facility] 11/14/2024 15:06:22 OBGyn Episode Ob Episode Information Episode Created Date Number of Fetuses Patient Bloodtype Patient rh Status Prepregnancy Weight lbs Domestic Partner Domestic Partner Phone Father Name Coke Crusher Operator Status 07/22/19 22 1 CLOSED Fetus Data First Name Last Name Admitted to NICU Weight (g) Sex Living Outcome Pediatric Complications Fetus ID Race Codes Race Delivery Type 2267.96 F [id number] Ace Calculation Initial Ace Date Initial Exam Date Initial Exam Provider Initial Ultrasound Date Last Menstrual Period Date Ultra Sound Weeks Gestation 0 Eighteen To Twenty Week Ace Update Ultra Sound Date Fundal Height At Umbil Quickening Date Ultra Sound Latest Weeks Gestation Final Ace Confirmed By Final Ace Confirmed Date Final Ace Date Ultra Sound Latest Days Gestation 0 0 Menstrual History Last Menstrual Date Menses Monthly On Bcp Conception Prior Menses Frequency Hcg Plus Date Menarche Onset Age Delivery Information Delivery Date Delivery Type Labor Anesthesia Weeks Gestation Incision Type Labor Labor Length Hrs Delivered By Post Complications Tubal Sterilization Discharge Date Comments 9 40.1 false Comments : Intoleran ce Discharge Information Feeding Method Contraceptive Method Maternal HG B and HCT Levels
--- OUTSIDE RECORDS SUMMARY | 2024-11-20 09:09 | XMS_ITS | Encounter Summary ---
Author Organization [facility] Address [facility] [place] [address] Care Team Providers Care Client Relationship Manager Name Role Phone Brent Earl MD Primary Care Provider Unavailable None, Provider Primary Care Provider Unavaila Susy Montero [employer]AT [employer]ER JEWEL Primary Care Provider + [phone] Encounter Details Date Type Department Care Team (Late st Contact Info) Description 03/10/2017 Abstract [place] [address] Brent Earl MD Social History Tobacco Use Types Packs/Day Years Used Date Smoking Tobacco: Never Assessed Comments Unknown Sex and Gender Information Value Date Recorded Sex Assigned at Female 05/04/2019 5:18 AM LEAN ENGINEER Legal Sex Female 6:07 PM CDT Gender Identity Female 05/04/2019 5:18 AM LEAN ENGINEER Sexual Orientation Straight 05/04/2019 5: 18 AM LEAN ENGINEER documented as of this encounter Plan of Treatment Not on file documented as of this encounter Visit Diagnoses Not on filedocumented in this encounter Care Teams Client Relationship Manager Relationship Specialty Start Date End Date Brent Earl MD PCP - General 05/19/15 None, ProviderMD PCP - General 05/04/19 06/07/20 Susy Mcgarry, ALEJANDRO [address] [place] [id number] PCP - General NURSE PRACTITIONER 06/08/20 documented as of this encounter
--- OUTSIDE RECORDS SUMMARY | 2024-11-20 09:09 | XMS_ITS | Data Portability ---
Author Organization [facility] [employer], Main Office Address [address] [place] [address] Care Team Providers Care Plastics Fabricator Or Welder Name Role Phone WESLEY DURBIN Referring Provider Assessment Encounter Date Assessment Date Assessment LastModified by Organization Details LastModified Time 02/07/2024 02/07/2024 This note is dictated and transcribed by [employer]. Restrictive Preparation Operator variances may occur. Despite proofreading, typographical errors may occur. Occasional wrong-word or '[id number]' substitutions may have occurred due to the inherent limitations of voice recording. Read the chart carefully and recognize, using context, where substitutions have occurred. [email or web address] Not available 02/07/2024 15:54:27 Plan of Treatment Reminders Order Date Submit Date Provider Last Modified By Organization Details Last Modified Time Details Appointments None recorded. Lab None recorded. Referral poultry offal worker referral 2023 024 CLEM Galvez DP, [address] [facility], [facility] [address], [place], [address], 5 05:01:33 Procedures None recorded. Surgeries None recorded. Imaging XR, foot, 3 or more view 2023 024 [email or web address] [facility] [address] [facility] [address], [place], [address], 4 15:59:09 XR, foot, 3 or more view 2023 024 [email or web address] [facility] [address] [facility] [address], [place], [address], 4 16:49:37 XR, foot, 3 or more view 2023 024 [facility] (Radiology), [address] [facility], [place], [address], 5 05:01:41 Medication Orders None recorded. Patient TargetsNo targets recorded. Patient InstructionsNo instructions recorded. Reason for Referral Human Resources Generalist Referral for Ford ux valgus AND bunion Referring Physician: Wesley Durbin Podiatry, Encounter Date: 01/23/2024 Results Created Date Observation Date Name Description Value Unit Range Abnormal Flag Note LastModifiedBy Organization Detail LastModifiedTime 02/07/20 24 XR, foot, 3 or more view No observ ation record ed. [email or web address] [facility] [address] [facility] [address], [place], [address], 02/07/2024 15:58:00 02/07/20 24 XR, foot, 3 or more view No observ ation record ed. [email or web address] [facility] Pod[facility] [address] [facility] [address], [place], [address], 02/07/2024 15:59:04 Result Notes None recorded. Problems Name Problem SNOMED Code Status Onset Date Resolution Date Notes Provider Name and Address Organization Details Recorded Time Hallux valgus AND bunion 611527411 Active 2023 AMY López null, [place] - [facility] [employer] 4 14:28:38 Pain in right foot 1573308432939 07 Active 2023 Wesley Durbin DPM [address] [facility], [address], [place], [address], [place] - [facility] [employer] [facility] [employer] 4 08:36:34 Pain in left foot 6935430309660 07 Active 2023 Wesley Durbin DPM [address], [address], [place], [address], [employer] 4 08:36:38 Congenital pes planus 67984749 Active 2023 Tigre Galvez, DPM [address], [address], [place], [address], [employer] 4 15:54:58 Problem Notes None recorded. Procedures Surgical History Date Name Laterality Status Provider Name and Address Organization Details Recorded Time 4 Callus Debridement 2-4 completed Wesley Durbin, DPM [address], [address], [place], [address], [employer] 01/28/2024 08:36:29 Imaging Results None recorded. Procedure Notes None recorded. Medical Equipment None Reported. Allergies No known drug allergies Vitals Date Recorded Oxygen saturation Oxygen saturation in Arterial blood by Pulse oximetry Heart rate Body temperature Body height Body mass index (BMI) Body weight Provider Name and Address Organization Details Last Updated DateTime 4 99 % 99 % 86 /min 97.9 [degF] 170.18 cm 27.3 kg/m2 45195.0 7 g AMY López [employer] 4 14:12:31 Date Recorded Body height Body mass index (BMI) Body weight Heart rate Respiratory rate Oxygen saturation Oxygen saturation in Arterial blood by Pulse oximetry Systolic And Diastolic Provider Name and Address Organization Details Last Updated DateTime 4 170.18 cm 27.3 kg/m2 36019.0 7 g 77 /min 14 /min 99 % 99 % 127/88 mm[Hg] Lakshmi Guardado [employer] 15:18:04 Social History Question Answer Notes LastModified by Organizat ion Details LastModified Time Tobacco Smoking Status Never Smoker AMY López [employer] 01/23/2024 14:13:23 If You Are , What Was Your Level Of Alcohol Consumption Prior To ? None [email or web address] Information not available 01/23/2024 What Is Your Level Of Caffeine Consumption? None [email or web address] Information not available 01/23/2024 What Was The Date Of Your Most Recent Tobacco Screening? 01/23/2024 [email or web address] Information not available 01/23/2024 Has Tobacco Cessation Counseling Been Provided? No [email or web address] Information not available 01/23/2024 Sex: Unknown Functional Status Question Answer Note LastModified by Organizat ion Details LastModified Time Do you use any illicit or recreational drugs? No [email or web address] Information not available 01/23/2024 Do you or have you ever used any other forms of tobacco or nicotine? No [email or web address] Information not available 01/23/2024 What is your level of alcohol consumption? None [email or web address] Information not available 01/23/2024 Mental Status None recorded. Family History Nothing Reported. Medical History No medical history recorded. Gynecological HistoryNo gynecological history recorded. Obstetrics History GPAL:G 0 P 0 0 0 0 Past Encounters Encounter ID Performer Location Encounter Start Date Encounter Closed Date Diagnosis/Indication Diagnosis SNOMED-CT Code Diagnosis ICD10 Code Diagnosis Note [id number] Wesley Durbin DPM [facility] [place] [address] [address] 01/23/2024 13:55:19 02/05/2024 15:45:13 Hallux valgus AND bunion 299039868 M20.10 Pain in right foot 54191 41607 61625 M79.671 Pain in left foot 261781 9655 56389 M79.968 [id number] Tigre Galvez DPM [facility] [place] [address] [place] [address] 02/07/2024 15:11:37 02/08/2024 11:33:44 Hallux valgus AND bunion 537640574 M20.10 bilateralx -rays reviewed with the patienttre atment options reviewed with the patientrec ommend conservati ve therapyfol low-up with primary care Congenital pes planus 23 254574 Q66.51 Q66.52 recommend Powerstep inserts and supportive shoe gear Health Concerns Section Related Observation LastModified by Organization Detai ls LastModified Time None Recorded Concern Status LastModified by Organization Details LastModified Time None Recorded Advance Directives Directive None Recorded Payers Insurance Date Sequence Insurance Name Policy Number Policy Hall Covered Member ID Hall Member ID Guarantor Name 02/11/2024 1 [facility] - DOS ON OR AFTER 20 (MEDICAID REPLACEMENT - HMO) Sarah Olson [id number] Sarah Olson Notes Date Note Type Note Provider Name and Address Organization Details Recorded Time 01/23/2024 text/html Pt RTC for c/o bunions both feet w/ calluses. Painful in shoes and during WB. Seeks poss surgical correction, Lt >> Rt. Wesley Durbin DPM [address], [address], [place], [address], [employer] 01/28/2024 08:36:51 02/07/2024 text/html Patient presents to the office for complaints of bunions. Patient states she has had these since she was 12 years old patient denies any open or injury. Patient has walking has pain to medial eminence of the great toe secondary to rubbing in shoe gear. Patient denies any conservative therapy for his condition. Patient was educated treatment options. Patient states that she wants to have surgery immediately. I explained she went to fail conservative therapy prior to any procedure. Patient became upset and walked out because she was unable to immediately have surgery scheduled. Tigre Galvez DPM [address], [address], [place], [address], [employer] 02/07/2024 16:00:12 OBGyn Episode No OBEpisode recorded.
--- OUTSIDE RECORDS SUMMARY | 2024-11-20 09:10 | XMS_ITS | Clinical Summary ---
Author Organization [facility] Address [address] [place] [address] Care Team Providers Care Superintendent Laundry Name Role Phone Chanell Deleon Primary Care Provider + Chanell Deleon Unavailable [phone] Source Comments [facility],non-owned Affiliates and Associated Physician Practices is amultiple site organization consisting of ambulatory clinics and hospital sitesin [place], [place], [place] and [place]. This disclosure is being madepursuant to the Care Everywhere program and may not contain all information available regarding this patient. Last updated 18.[facility] Allergies No known active allergies Medications * Be aware that medications may not be up to date on this document. Alwaysverify current medications with the patient. No known medications Active Problems No known active problems Immunizations Immunization Administration Dates Next Due [employer] 12+YR 30MCG/0.3mL 04/10/2023 DTAP HIB IPV 05/31/1995 DTP, HISTORIC VACCINE 02/27/1995,1994 DTaP VACCINE IM (6wk-6yrs) 10/09/1997 HEP B VACCINE, PED/ADOL 02/27/1995,1994, HIB VACCINE 02/27/1995,1994 Human Papilloma Virus Bivalent Vaccine 3,04/04/2012 INFLUENZA VACCINE 03/06/2011 INFLUENZA VACCINE, CELL CULT URE, QUADR. (FLUCELVAX QUADRIVALENT; 6MO+) (CCIIV4) 03/27/2022,01/13/2019 INFLUENZA VACCINE, QUADR. (F LUZONE; FLULAVAL; FLUARIX; AFLURIA QUADRIVALENT; 6MO+), 0.5 ML (IIV4) 03/08/2023,03/23/2021,03/12/2017,02/01,05/22/2014 INFLUENZA VACCINE, TRIV. (FL UZONE; FLULAVAL; FLUARIX; AFLURIA TRIVALENT; 6MO+), 0.5 ML (IIV3) 02/10/2013,04/04/2012 MENINGOCOCCAL ACWY MENVEO 04/04/2012 MMR VACCINE 04/04/2012,05/31/1995 POLIO IPV 07/02/2014 POLIO OPV 02/27/1995,1994 TDAP (7yrs+) 05/06/2019 TDAP, HISTORIC VACCINE 07/02/2014 VARICELLA 07/02/2014 Social History Tobacco Use Types Packs/Day Years Used Date Smoking Tobacco: Never Smokeless Tobacco: Never Tobacco Cessation:Counseling Given: Not Answered Alcohol Use Standard Drinks/Week Comments Yes 0 (1 standard drink = 0.6 oz pur e alcohol) occ Comments Unknown Sex and Gender Information Value Date Recorded Sex Assigned at Not on file Legal Sex Female 1:56 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 Gender Identity Not on file Sexual Orientation Not on file Last Filed Vital Signs Vital Sign Reading Time Taken Comments Blood Pressure 119/74 01/28/2024 9:27 AM CDT Pulse 98 01/28/2024 9:27 AM CDT Temperature - - Respiratory Rate - - Oxygen Saturation 98% 06/01/2022 10:59 AM AIRPLANE RENTAL CLERK Inhaled Oxygen Concentration - - Weight 76.3 kg (168 lb 3.2 oz) 01/28/2024 9:27 A M CDT Height 167.6 cm (5' 6) 01/28/2024 9:27 AM CDT Body Mass Index 27.15 01/28/2024 9:27 AM CDT Plan of Treatment Health Maintenance Due Date Last Done Comments HEPATITIS C SCREENING 05/18/2012 HPV VACCINE (3 - 3-dose series) 05/05/2013 02/10/2013, 04/04/2012 PAP SMEAR 2015 COVID-19 VACCINE ( season) 2024 04/10/2023 DEPRESSION SCREENING 05/07/2024 INFLUENZA VACCINE (#1) 2025 , 03/27/2022, 03/23/2021, Additional history exists DTAP/TDAP/TD VACCINES (7 - Td or Tdap) 05/06/2029 05/06/2019, 07/02/2014, 10/09/1997, Additional history exists ZOSTER VACCINE (1 of 2) 2044 HEPATITIS B VACCINE Completed 02/27/1995, 1994, 1994 HIB VACCINE Completed 05/31/1995, 02/05, 1994 MENINGOCOCCAL GROUPS A/C/Y/W VACCINE Completed 04/04/2012 HIV SCREENING Completed 02/09/2019, 07/2018, 10/17/2018 MENINGOCOCCAL (Group B) VACCINE SHARED DECISION-MAKING Aged Out No longer eligible based on patient's age to complete this topic PNEUMOCOCCAL VACCINE Aged Out No long er eligible based on patient's age to complete this topic Insurance Care Teams Superintendent Laundry Relationship Specialty Start Date End Date Chanell Deleon APRN-CNP [address] [place] [address] PCP - General 03/21/22 Chanell Deleon APRN-CNP [address] [place] [address] Nurse Practitioner 03/21/22
--- OUTSIDE RECORDS SUMMARY | 2024-11-20 09:10 | XMS_ITS | Clinical Summary ---
Author Organization [facility] Address [facility] [place] [address] Care Team Providers Care Wage Adjuster Name Role Phone Susy Mcgarry NP Primary Care Provider + [phone] Allergies No known active allergies Medications VITAMINS 28-0.8 MG tablet 02/19/2019 Ac tive Active Problems Problem Noted Date Diagnosed Date Third-stage hemorrhage (HHS/HCC) 04/08 ([facility] 05/04/2019 Immunizations Immunization Administration Dates Next Due Tdap (Boostrix) 05/06/2019 Family History Medical History Relation Comments Asthma Father Heart Disease Father Hypertension Father Sleep Apnea Father Hypertension Maternal Grandfather Cancer Maternal Grandmother lung Hypertension Mother Heart Disease Paternal Grandfather Relation Status Comments Father Alive Maternal Grandfather Alive Maternal Grandmother Mother Alive Paternal Grandfather Alive Paternal Grandmother Alive Social History Tobacco Use Types Packs/Day Years Used Date Smoking Tobacco: Never Smokeless Tobacco: Never Alcohol Use Standard Drinks/Week Comments No 0 (1 standard drink = 0.6 oz pur e alcohol) Humiliation, Afraid, Rape, and Kick questionnair e Answer Date Recorded Fear of Current or Ex-Partner No Emotionally Abused No 05/04/2019 Physically Abused No 05/04/2019 Sexually Abused No 05/04/2019 AUDIT-C Answer Date Recorded Frequency of Alcohol Consumption Never 05/04/2019 Average Number of Drinks Not on file 019 Frequency of Binge Drinking Not on file 04/07 Comments No Sex and Gender Information Value Date Recorded Sex Assigned at Female 05/04/2019 5:18 AM PIPE 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 TEST SUPERVISOR Legal Sex Female 6:07 PM CDT Gender Identity Female 05/04/2019 5:18 AM PIPE AND TEST SUPERVISOR Sexual Orientation Straight 05/04/2019 5: 18 AM PIPE AND TEST SUPERVISOR Last Filed Vital Signs Vital Sign Reading Time Taken Comments Blood Pressure 114/76 07/23/2023 3:07 PM CDT Pulse 101 07/23/2023 3:07 PM CDT Temperature 36.8 C (98.2 F) 07/23/2023 3:07 PM CDT Respiratory Rate 18 07/23/2023 3:07 PM CDT Oxygen Saturation 100% 07/23/2023 3:07 PM CDT Inhaled Oxygen Concentration - - Weight 76.2 kg (168 lb) 07/23/2023 3:07 PM CDT Height 167.6 cm (5' 6) 07/23/2023 3:07 PM CDT Body Mass Index 27.12 07/23/2023 3:07 PM CDT Plan of Treatment Health Maintenance Due Date Last Done Comments Cervical Cancer Screening Pap Smear (Age 30 to 64) Every 3 Years 1994 Annual Physical 1997 Hepatitis C 2012 HPV Vaccines (3 - 3-dose series) 05/05/2013 02/10/2013, 04/04/2012 COVID-19 Vaccine ( season) 2024 04/10/2023 Cervical Cancer Screening Pap with HPV Testing (Age 30 to 64) Every 5 Years 2024 Cervical Cancer Screening with HPV 2024 DTaP, Tdap and Td Vaccines (5 - Td or Tdap) 05/06/2029 05/06/2019, 07/02/2014, 10/09/1997, Additional history exists Hepatitis B Vaccines Completed 02/27/1995, 1994, 1994 Meningococcal Vaccine Completed 04/04/2012 Meningococcal B Vaccine Aged Out No l onger eligible based on patient's age to complete this topic Pneumococcal Vaccine: Pediatrics (0 to 5 Years) and At-Risk Patients (6 to 49 Years) Aged Out No longer eligible based on patient's age to complete this topic RSV Immunizations Under 20 Months Aged Out No longer eligible based on patient's age to complete this topic Insurance [employer] Advance Directives * Full Code (Latest Code Status on File) Date Activated Date Inactivated Comments 05/04/2019 11:24 PM 05/07/2019 8:09 PM * Full Code Date Activated Date Inactivated Comments 05/04/2019 2:26 AM 05/04/2019 11:24 PM Care Teams Wage Adjuster Relationship Specialty Start Date End Date Susy Mcgarry NP [address] [place] [phone] PCP - General NURSE PRACTITIONER 06/08/20
--- OUTSIDE RECORDS SUMMARY | 2024-11-20 09:10 | XMS_ITS ---
Author Organization Unknown Plan of Treatment Description Planned Activity Planned Timing [facility] is a provider organization who partners directly with Health Plans and provides integrated primary care, behavioral health, and social science professor for an attributed population Letter encounter to patientTelephone encounter Oct 30, 2024Jul 2024 Patient Care team information Name Category Status Period Participants - - Proposed period not known -
--- OUTSIDE RECORDS SUMMARY | 2024-11-20 09:10 | XMS_ITS | Clinical Summary ---
Author Organization [facility] Address [address] [place] [id number] Care Team Providers Care Operations Research Group Manager Name Role Phone Susy Mcgarry TRANSFER WORKER Unavailable Shola Hester MD Primary Care Provider [phone] Allergies No known active allergies Medications dicyclomine (BENTYL) 10 mg capsuleIndicatio ns:Abdominal Pain with Cramps,Irritable Bowel Syndrome Take 1 capsule (10 mg total) by mouth 4 (four) times a day before meals and nightly for 20 doses 20 capsule [address] (PROTONIX) 40 mg EC tablet Take 1 tablet (40 mg total) by mouth daily for 15 days 15 tablet 3 Active nitrofurantoin monohydrate (MACROBID) 100 mg capsule Take 1 capsule (100 mg total) by mouth 2 (two) times a day 10 capsule 5 Active nitrofurantoin monohydrate (MACROBID) 100 mg capsule Take 1 capsule (100 mg total) by mouth 2 (two) times a day for 5 days 10 capsule 5 10/31/19 25 Active Problems Problem Noted Date Diagnosed Date IUGR, 01/31/2019 Supervision of high risk , antepartum 0 01/31/2019 Overview (01/31/2019): [] Co-management vs. [] Full [facility] Care; Referring Provider:Susy Mcgarry [phone] [x] Dating Criteria: LMP 07/19/18, US 01/09/19 with TRAMAINE 05/03/19 [x] Labs: Rh [A+], Ab [negative], Rubella [reactive], HIV [non- reactive], HepBSAg [non-reactive], RPR [non-reactive], GC/CT [negative/negative] [] Genetic Screening: [x] CBC/Hgb 13.1/39.8/plt 267 [] Early 1hr GTT (if indicated) [x] UCx: 10/17/18 no growth [x] Pap: 10/17/18 negative [] LD ASA (if indicated) starting at 12 weeks: [] EPDS [ ]; PNBHS referral (if indicated) 2nd Tri Labs: [] Anatomy ultrasound: [] CBC/1hr gtt at 24-28wks: [] Flu Shot (Jan-Apr): [] Tdap (27-36wks): [] Rhogam at 28 wks (if Rh neg): 3rd Tri Labs: [] CBC/HIV/RPR/T&S: [] GBS: [] GC/CT (if indicated): Counselling [] MOD: [] Place of delivery: [] MOC: [] Method of feeding: [] Mold Tooling Technician: [] PP Depression Discussed: Encounters Date Type Department Care Team Description 10/25/2024 2:54 PM CDT - 10/25/2024 3:04 PM CDT [facility] Emergency Department [address] [place] [address] [id number] Cystitis (Primary Dx) Discharge Disposition: Discharge to home or self care from Last 3 Months Social History Tobacco Use Types Packs/Day Years Used Date Smoking Tobacco: Never Tobacco Cessation:Counseling Given: Not Answered Alcohol Use Standard Drinks/Week Comments Not Asked 0 (1 standard drink = 0.6 oz pur e alcohol) 3-4x / year Personal Safety Answer Date Recorded Have you ever been in or are you currently in a harmful physical or emotional relationship or is someone making you feel afraid or unsafe? 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 Gender Identity Not on file Sexual Orientation Not on file Obstetrics History Para Term AB IAB SAB Ectopic Multiple Livin g Live Births 1 Date Outcome GA Total Labor Labor/2nd/3rd Weight Sex Type Anes PTL Leonor A1 A5 Name Clin Last Filed Vital Signs Vital Sign Reading Time Taken Comments Blood Pressure 112/45 10/25/2024 2:37 PM CDT Pulse 98 10/25/2024 2:37 PM CDT Temperature 36.8 C (98.2 F) 10/25/2024 2:37 PM CDT Respiratory Rate 18 10/25/2024 2:37 PM CDT Oxygen Saturation 95% 10/25/2024 2:37 PM CDT Inhaled Oxygen Concentration - - Weight 72.7 kg (160 lb 4.4 oz) 10/25/2024 2:37 P M CDT Height 170.2 cm (5' 7) 07/22/2024 1:46 PM CDT Body Mass Index 25.1 07/22/2024 1:46 PM CDT Plan of Treatment Health Maintenance Due Date Last Done Comments Cervical Cancer Screening 1994 Depression Screening 1994 Hepatitis C Screening 1994 Regular Well Visit/Exam 18-64 2012 HPV Vaccines (3 - 3-dose series) 05/05/2013 02/10/2013, 04/04/2012 Varicella Vaccines (2 of 2 - 13+ 2-dose series) 07/30/2014 07/02/2014 Influenza Vaccine (Season Ended) 2025 04/09/2023, 03/08/2023, 03/27/2022, Additional history exists DTaP/Tdap/Td Vaccine (7 - Td or Tdap) 05/06/2029 05/06/2019, 07/02/2014, 10/09/1997, Additional history exists Hepatitis B Screening Completed 02/27/1995 , 1994, 1994 Pneumococcal vaccine <65 Aged Out No longer eligible based on patient's age to complete this topic Procedures Procedure Name Priority Date/Time Associated Diagnosis Comments POCT HCG, URINE Routine 10/25/2024 2:52 PM CDT URINALYSIS, MICROSCOPIC ONLY STAT 10/25/2024 2:48 PM CDT URINE CULTURE STAT 10/25/2024 2:48 PM CDT URINALYSIS AND REFLEX TO MICROSCOPIC AND CULTURE STAT 10/25/2024 2:48 PM CDT from Last 3 Months Results * POCT hCG, urine (10/25/2024 2:52 PM CDT) HCG, ur, POC Negative Negative Lot Number [id number] QC Backgroud Clear Acceptable QC Control Line Acceptable Urine 10/25/2024 2:52 PM CDT Kana Sebastian MD POINT OF CARE TEST ORD ERABLES Final Result * (ABNORMAL) Urinalysis reflex to microscopic and culture Urine (10/25/2024 2:48 PM CDT) Color, ur Yellow Yellow Comment:Testing performed by : [address] [address] Clarity, ur Clear Clear SERENA Comment:Testing performed by : [address] [address] Specific gravity, ur 1.027 1.003 - 1.030 SERENA Comment:Testing performed by : [address] [address] pH, urine 5.5 SERENA Comment: Interpretive Data U rine pH is affected by diet, medications, systemic acid-base disturbances, and renal tubular function. pH may affect urinary stone formation. For example, urine pH below 6.0 may help reduce the tendency for calcium phosphate stones and pH greater than 6.0 may reduce the tendency for uric acid stone formation. Source: [facility] Current Interpretive Data was last revised on 2017 Testing performed by: [address] [address] Protein, ur ql Negative Negative SERENA Comment:Testing performed by : [address] [address] Glucose, ur ql Negative Negative SERENA Comment:Testing performed by : [address] [address] Ketones, ur Negative Negative SERENA Comment:Testing performed by : [address] [address] Bilirubin, ur Negative Negative SERENA Comment:Testing performed by : [address], [place]., [address] Blood, ur 1+(A) Negative SERENA Comment:Testing performed by : [address], [place]., [address] Urobilinogen, ur <2.0 <2.0 mg/dL SERENA Comment:Testing performed by : [address], [place]., [address] Nitrite, ur Negative Negative SERENA Comment:Testing performed by : [address] [address] Leukocyte esterase, ur 2+(A) Negative SERENA Comment:Testing performed by : [address], [place]., [address] UA reflex comment Reflex to microscopic UA will be performed. SERENA Comment:Testing performed by : [address] [address] Urine 10/25/2024 2:48 PM CDT 10/25/2024 2:52 PM CDT us Kana Sebastian MD LAB MICROBIOLOGY - GEN ERAL ORDERABLES Final Result SERENA [facility] Department [place] [address] * (ABNORMAL) Urinalysis, microscopic only (10/25/2024 2:48 PM CDT) WBC, ur 11-20(A) 0 - 5 /HPF Comment:Testing performed by : [address] [address] RBC, ur 3-5(A) 0 - 2 /HPF SERENA Comment:Testing performed by : [address] [address] Epithelial cells, squamous, ur 21-50(A) 0 - 5 /HPF SERENA Comment:Testing performed by : [address] [address] Bacteria, ur 1+(A) SERENA DIAZ Comment:Testing performed by : [facility], [address] [place] [address]., [address] Mucous, ur Present(A) SERENA DIAZ Comment:Testing performed by : [facility], [address] [place] [address]., [address] Culture Reflex Comment Reflex to urine culture will be performed. SERENA DIAZ Comment:Testing performed by : [facility], [address] [place] [address]., [address] Urine 10/25/2024 2:48 PM CDT 10/25/2024 2:52 PM CDT us Kana Sebastian MD LAB URINE ORDERABLES F inal Result SERENA DIAZ [address] [facility] Department [place] [address] * (ABNORMAL) Urine culture Urine (10/25/2024 2:48 PM CDT) Report Final Report: Greater than or equal to 100,000 colonies/mL of Klebsiella (Enterobacter) aerogenes Plus growth of clinically insignificant bacterial su. Includes the following: Less than 100,000 colonies/mL Streptococcus agalactiae (Group B Streptococci) * * * * * * * * * * * * * * * * * * * * Resistance to penicillin in Group B Streptococcus has not been reported. Group B Streptococci are universally susceptible to beta-lactam antibiotics and vancomycin. Routine susceptibility testing is not performed. In penicillin allergic patients, please contact the laboratory at [phone] to request susceptibility testing * * * * * * * * * * * * * * * * * * * * This laboratory routinely screens urine cultures for any amount of Group B Streptococcus in reproductive age women. Recovery of this isolate may be significant in women, however, the recovery of this organism in small quantities in non- women represents contamination with periurethral su.(.) Comment:Testing performed by : [facility], [address] [facility] [place]., [address] Organism KLEBSIELLA (ENTEROBACTER) AEROGENES SERENA Organism STREPTOCOCCUS AGALACTIAE (GROUP B STREPTOCOCCI) [facility] Organism PLUS GROWTH OF CLINICALLY INSIGNIFICANT SU. [facility] Urine 10/25/2024 2:48 PM CDT 10/25/2024 9:17 PM CDT Narrative SERENA - 10/27/2024 4:01 PM CDT Urine culture reflexed based upon urinalysis results. Testing performed by [facility] ([phone]) Organism Antibiotic Method Susceptibility Klebsiella (Enterobacter) aerogenes Ampicillin INTERPRETATION Resistant Klebsiella (Enterobacter) aerogenes Cefazolin INTERPRETATION Resistant Klebsiella (Enterobacter) aerogenes Nitrofurantoin INTERPRETATION Susceptible Klebsiella (Enterobacter) aerogenes Gentamicin INTERPRETATION Susceptible Klebsiella (Enterobacter) aerogenes Trimethoprim with Sulfamethoxazole INTERPRETATION Susceptible Klebsiella (Enterobacter) aerogenes Meropenem INTERPRETATION Susceptible Klebsiella (Enterobacter) aerogenes Cefepime INTERPRETATION Susceptible Klebsiella (Enterobacter) aerogenes Ciprofloxacin INTERPRETATION Susceptible Klebsiella (Enterobacter) aerogenes Ceftazidime INTERPRETATION Resistant Klebsiella (Enterobacter) aerogenes Ceftriaxone INTERPRETATION Resistant Klebsiella (Enterobacter) aerogenes Piperacillin/Tazobactam INTERPRETATION Resistant Kana Sebastian MD LAB MICROBIOLOGY - GEN ERAL ORDERABLES Final Result [facility] [address] [facility] [place] [address] from Last 3 Months Insurance [facility] Care Teams Operations Research Group Manager Relationship Specialty Start Date End Date Shola Hester MD PCP - General Emergency Medicine 03/01/22 Susy Mcgarry NP Nurse Practitioner Obstetrics and Gynecology 01/13/19
--- OUTSIDE RECORDS SUMMARY | 2024-11-20 09:10 | XMS_ITS | Referral Summary ---
Author Organization [facility] Address [address] [place] [phone] Care Team Providers Care Associate Brand Manager Name Role Phone Susy Mcgarry FORESTRY SUPPORT SPECIALIST Unavailable Shola Hester MD Primary Care Provider [phone] Encounters Date Type Department Care Team Description 10/25/2024 2:54 PM CDT - 10/25/2024 3:04 PM CDT Emergency [facility] Emergency Department [facility] [place] [address] Cystitis (Primary Dx) Discharge Disposition: Discharge to home or self care from Last 3 Months Allergies No known active allergies Medications dicyclomine [...] Overview (01/31/2019): [] Co-management vs. 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, [address] [place] [address]., [address] Clarity, ur Clear Clear SERENA Comment:Testing performed by : [address] [address] Specific gravity, ur 1.027 1.003 - 1.030 SERENA Comment:Testing performed by : [address] [address] pH, urine 5.5 SERENA Comment: Interpretive Data U rine pH is affected by diet, medications, systemic acid-base disturbances, and renal tubular function. pH may affect urinary stone formation. For example, urine pH below 6.0 may help reduce the tendency for calcium phosphate stones and pH greater than 6.0 may reduce the tendency for uric acid stone formation. Source: [facility] Current Interpretive Data was last revised on 2017 Testing performed by: [address] [address] Protein, ur ql Negative Negative SERENA Comment:Testing performed by : [address] [address] Glucose, ur ql Negative Negative SERENA Comment:Testing performed by : [address] [address] Ketones, ur Negative Negative SERENA Comment:Testing performed by : [address] [address] Bilirubin, ur Negative Negative SERENA Comment:Testing performed by : [address] [address] Blood, ur 1+(A) Negative SERENA Comment:Testing performed by : [address] [address] Urobilinogen, ur <2.0 <2.0 mg/dL SERENA Comment:Testing performed by : [address] [address] Nitrite, ur Negative Negative SERENA Comment:Testing performed by : [address] [address] Leukocyte esterase, ur 2+(A) Negative SERENA Comment:Testing performed by : [address] [address] UA reflex comment Reflex to microscopic UA will be performed. SERENA Comment:Testing performed by : [address], [place]., [address] Urine 10/25/2024 2:48 PM CDT 10/25/2024 2:52 PM CDT Kana Sebastian MD LAB MICROBIOLOGY - GEN ERAL ORDERABLES Final Result Performing Organization Address [facility] de Phone Number SERENA [facility] [place] [address] * (ABNORMAL) Urinalysis, microscopic only (10/25/2024 2:48 PM CDT) WBC, ur 11-20(A) 0 - 5 /HPF Comment:Testing performed by : [address] [address] RBC, ur 3-5(A) 0 - 2 /HPF SERENA Comment:Testing performed by : [address] [address] Epithelial cells, squamous, ur 21-50(A) 0 - 5 /HPF SERENA Comment:Testing performed by : [address] [address] Bacteria, ur 1+(A) SERENA Comment:Testing performed by : [address] [address] Mucous, ur Present(A) SERENA Comment:Testing performed by : [address] [address] Culture Reflex Comment Reflex to urine culture will be performed. SERENA Comment:Testing performed by : [address] [address] Urine 10/25/2024 2:48 PM CDT 10/25/2024 2:52 PM CDT Kana Sebastian MD LAB URINE ORDERABLES F inal Result Performing Organization Address [facility] Co de Phone Number SERENA [facility] [place] [address] * (ABNORMAL) Urine culture Urine (10/25/2024 2:48 [...] allergic patients, please contact the laboratory at [phone] to request susceptibility testing * * * [...] with periurethral su.(.) Comment:Testing performed by : [facility], [address] [facility] [place]., [address] Organism KLEBSIELLA (ENTEROBACTER) AEROGENES [facility] Organism STREPTOCOCCUS AGALACTIAE (GROUP B STREPTOCOCCI) [facility] Organism PLUS GROWTH OF CLINICALLY INSIGNIFICANT SU. [facility] Urine 10/25/2024 2:48 PM CDT 10/25/2024 9:17 PM CDT Narrative [facility] - 10/27/2024 4:01 PM CDT Urine culture reflexed based upon urinalysis results. Testing performed by [facility] ([phone]) Organism Antibiotic Method Susceptibility Klebsiella (Enterobacter) aerogenes [...] Resistant Klebsiella (Enterobacter) aerogenes Piperacillin/Tazobactam INTERPRETATION Resistant us Kana Sebastian MD LAB MICROBIOLOGY - GEN ERAL ORDERABLES Final Result [facility] [address] [facility] Department [place] [address] from Last 3 Months Insurance [facility] Care Teams Associate Brand Manager Relationship Specialty Start Date End Date Shola Hester MD PCP - General Emergency Medicine 03/01/22 Susy Mcgarry NP Nurse Practitioner Obstetrics and Gynecology 01/13/19
== END 2024-11-20 09:06 | disposition home or self-care (01) ==
PROVIDERS: PCP Emergency Medicine; Visit Provider Surgery
DX: R22.1 Localized swelling, mass and lump, neck (principal)
CPT/HCPCS: 76536